=== PATIENT | female | born 1950 | race Caucasian/White ===

== ENCOUNTER 2017-09-13 10:39 | Emergency (ER) | payer OTHER ==
[~2017-09-13] VITALS: Ht 152.4 cm; Wt 78.0 kg
[2017-09-13] MEDS ORDERED: SODIUM CHLORIDE 0.9% 1,000 ML IV ONE (11:13)
[2017-09-13 11:50] LABS: BASOPHILS % 0.7 % (0.0-2.0); EOSINOPHILS % 3.8 % (0.0-5.0); HEMATOCRIT. 37.9 % (36.0-48.0); HEMOGLOBIN. 12.9 g/dL (12.0-16.0); LYMPHOCYTES % 36.4 % (20.0-50.0); MEAN CORPUSCULAR HEMOGLOBIN 30.2 pg (28.0-32.0); MEAN CORPUSCULAR VOLUME 88.7 fL (81.0-99.0); MEAN PLATELET VOLUME 7.8 fl (7.4-10.4); MONOCYTES % 7.9 % (2.0-8.0); NEUTROPHILS % 51.2 % (40.0-76.0); PLATELET 262 x1000/uL (130-400); RED BLOOD CELL COUNT 4.27 mill/uL (4.2-5.4); RED CELL DISTRIBUTION WIDTH 14.3 % (11.6-14.6)
[2017-09-13 11:57] LABS: CHLORIDE 104 mEq/L (98-107)
[2017-09-13] MEDS ORDERED: LORAZEPAM 2MG/ML CPJ ONE (12:14)
[2017-09-13] MEDS ORDERED: VALPROATE SODIUM 500 MG in SODIUM CHLORIDE 0.9% 100 ML IV STA (12:19)
[2017-09-13] MEDS ORDERED: PHENYTOIN SODIUM EXTENDED 100MG CAPSULE PO ONE (12:30)
[2017-09-13 14:19] VITALS: BP 124/62
== END 2017-09-13 14:50 | disposition home or self-care (01) ==
LOC: ER 10:50
DX: G40.909 Epilepsy, unspecified, not intractable, without status epilepticus (principal); E11.9 Type 2 diabetes mellitus without complications; I10 Essential (primary) hypertension; Z86.59 Personal history of other mental and behavioral disorders
CPT/HCPCS: 36415; 80053; 80165; 80185; 85025; 93005; 96365; 99285; J3490; J7030; J2060; J7050